=== PATIENT | male | born 1960 | race Caucasian/White ===

== ENCOUNTER → 2022-04-10 | Day surgery (SDC) | payer BC ==
[~2022-04-10] MED LIST: Flumazenil 0.1 MG/ML 10 ML MDV ONE; Glycopyrrolate 0.2 MG/ML 2 ML SDV ONE; Ketamine 200 MG/20 ML MDV ONE; Midazolam 1 MG/ML 2 ML SDV ONE; Phenylephrine 1% 10 MG/ML SDV ONE; Propofol 200 MG/20 ML SDV ONE; fentaNYL 100 MCG/2 ML SDV ONE
[2022-04-10] MEDS: Lactated Ringers 1,000 ML IV SCH (09:24)
[2022-04-10 11:37] VITALS: BP 111/64; PULSE 42
== END ==
LOC: CC.SDS 09:09
PROVIDERS: ATTEND Family Medicine
DX: Z12.11 Encounter for screening for malignant neoplasm of colon (principal); K57.30 Diverticulosis of large intestine without perforation or abscess without bleeding; E78.5 Hyperlipidemia, unspecified; I10 Essential (primary) hypertension; R25.2 Cramp and spasm; N43.3 Hydrocele, unspecified; Z79.82 Long term (current) use of aspirin; Z79.899 Other long term (current) drug therapy; Z98.890 Other specified postprocedural states
CPT/HCPCS: 00812; J2250; J2370; J2704; J3010; J3490; J7120